=== PATIENT | male | born 1945 | race Caucasian/White ===

== ENCOUNTER 2018-11-10 06:06 | Day surgery (SDC) | payer MEDICARE ==
[2018-11-09 10:10] LABS: BASOPHILS % (AUTO) 0.8 % (0-1); EOSINOPHILS # (AUTO) 0.2 X10'3 (0-0.9); EOSINOPHILS % (AUTO) 3.2 % (0-6); HEMATOCRIT 44.5 % (42.0-52.0); HEMOGLOBIN 15.2 g/dl (14.0-17.9); LYMPHOCYTES # (AUTO) 1.6 X10'3 (1.1-4.8); MEAN CORPUSCULAR HEMOGLOBIN 32.8 PG (27.0-31.0); MEAN CORPUSCULAR HGB CONC 34.1 g/dL (33.0-36.5); MEAN CORPUSCULAR VOLUME 96.1 FL (78-98); MEAN PLATELET VOLUME 8.8 FL (7.4-10.4); MONOCYTES # (AUTO) 0.4 X10'3 (0-0.9); MONOCYTES % (AUTO) 7.7 % (2-12); NEUTROPHILS % (AUTO) 58.3 % (42-75); PLATELET COUNT 231 X10'3 (140-440); RED BLOOD COUNT 4.63 X10'6 (4.70-6.10); RED CELL DISTRIBUTION WIDTH 14.5 % (11.5-14.5); WHITE BLOOD COUNT 5.2 X10'3 (4.5-11.0)
[2018-11-09 10:14] LABS: ALBUMIN 3.3 G/DL (3.4-5.0); ANION GAP 10 (8-16); BLOOD UREA NITROGEN 17 MG/DL (7-18); BUN/CREATININE RATIO 14.5 (5.4-32.0); CALCIUM 8.8 MG/DL (8.5-10.1); CHLORIDE 105 MMOL/L (99-107); CREATININE 1.17 MG/DL (0.60-1.10); GLUCOSE 101 MG/DL (70-104); POTASSIUM 3.9 MMOL/L (3.5-5.1); SODIUM 140 MMOL/L (135-145); TOTAL CARBON DIOXIDE 25.4 MMOL/L (24-32); eGFR 61 ML/MIN
[2018-11-09 10:18] LABS: PARTIAL THROMBOPLASTIN TIME 28 SECONDS (22-32)
[~2018-11-10] VITALS: Ht 170.2 cm; Wt 77.6 kg
[2018-11-10] VITALS (12 sets, daily range): BP systolic 137–158; BP diastolic 64–85
[2018-11-10] MEDS ORDERED: IBUP-1986 PO (06:28)
[2018-11-10] MEDS ORDERED: CYAN-34 (06:28)
[2018-11-10] MEDS ORDERED: FEXO180T94 PO (06:28)
[2018-11-10] MEDS ORDERED: acetylcysteine 200 MG/ml 4ml vial PO PRN (06:30)
[2018-11-10] MEDS ORDERED: normal saline 1,000 ML IV SCH (06:30)
[2018-11-10] MEDS ORDERED: diphenhydrAMINE 25mg capsule PO PRN (06:30)
[2018-11-10] MEDS ORDERED: LORazepam 0.5 MG tablet PO PRN (06:35)
[2018-11-10] MEDS ORDERED: ceFAZolin 2gm in dextrose, iso 100 ML IV ONE (06:35)
[2018-11-10] MEDS ORDERED: VANCOMYCIN 1,500MG inj. 1,500 MG in normal saline 250ml IV soln 280 ML IV ONE (06:35)
[2018-11-10] MEDS ORDERED: LIDOcaine/PRILOcaine 5gm cream TP ONE (06:35)
[2018-11-10] MEDS ORDERED: fentaNYL/PF 50MCG/1 ML 2ML syringe ONE (07:47)
[2018-11-10] MEDS ORDERED: verapamil 2.5 mg/ml inj IV ONE (07:47)
[2018-11-10] MEDS ORDERED: midazolam 2 mg/2 ml injection ONE ×2 (07:47→10:04)
[2018-11-10] MEDS ORDERED: nitroGLYCERIN-Tridil 50MG/D5W 250 ML IV ONE (07:47)
[2018-11-10] MEDS ORDERED: heparin 1,000unit/ml 10ml vial 10 ML ONE (07:48)
[2018-11-10] MEDS ORDERED: iohexol 350 MG/ML 50ML vial IV ONE (07:48)
[2018-11-10] MEDS ORDERED: LIDOcaine 1% 30ml preserv. free vial ONE (07:48)
[2018-11-10] MEDS ORDERED: iohexol 350MG/ML 100ml bottle IV ONE (07:48)
[2018-11-10] MEDS ORDERED: LIDOcaine 1% w/EPI 1:100,000 30ml vial (MDV) ONE (07:48)
[2018-11-10] MEDS ORDERED: ceFAZolin 1000mg inj ONE (07:49)
[2018-11-10] MEDS ORDERED: cefazolin/dext.iso 2gm/100ml 100 ML IV ONE (07:49)
[2018-11-10] MEDS ORDERED: HYDROcodone/acetaminophen 10/325mg tab PO PRN (11:05)
[2018-11-10] MEDS ORDERED: HYDROcodone/acetaminophen 5mg/325mg tablet PO PRN (11:05)
--- NOTE | 2018-11-10 12:25 | NUR ---
Patient in room . I have received report from CLINTON MOLINA and had the opportunity to ask questions and assume patient care.
== END 2018-11-10 17:05 | disposition home or self-care (01) ==
LOC: SSTAY O 06:06
PROVIDERS: ATTEND Internal Medicine Cardiovascular Disease
DX: I49.5 Sick sinus syndrome (principal); I25.119 Atherosclerotic heart disease of native coronary artery with unspecified angina pectoris
CPT/HCPCS: 33208; 36415; 71046; 80048; 85025; 85610; 85730; 93005; 93458; 93567; 99152; 99153; A6257; C1760; C1769; C1785; C1894; C1898; J0690; J1644; J2250; J3010; J3370; J3490; J7030; Q0163; Q9967; A4565; A4620